=== PATIENT | female | born 1950 | race Caucasian/White ===

== ENCOUNTER 2019-04-21 21:04 | Emergency (ER) | payer OTHER, MEDICARE ==
[~2019-04-21] VITALS: Ht 157.5 cm; Wt 49.0 kg
[2019-04-21 21:19] VITALS: BP_SYST 124
[2019-04-21 21:50] VITALS: BP_SYST 124
== END 2019-04-21 21:50 | disposition home or self-care (01) ==
LOC: SED 21:04
DX: T63.2X1A Toxic effect of venom of scorpion, accidental (unintentional), initial encounter (principal); Y92.89 Other specified places as the place of occurrence of the external cause
CPT/HCPCS: 99281